=== PATIENT | male | born 1985 | race Caucasian/White ===

== ENCOUNTER → 2016-09-18 | Outpatient (CLI) | payer OTHER ==
--- NOTE | 2016-09-18 12:39 | DIAGNOSTIC IMAGING REPORT ---
CT RIGHT LOWER EXTREMITY WITHOUT CT DOSE: 238.77 mGy.cm CLINICAL HISTORY: Right knee pain TECHNIQUE: Helical images were acquired in the transverse plane. Sagittal and coronal reformatted images were acquired. COMPARISON STUDY: None. FINDINGS: There is no radiographic evidence of a pathologic joint effusion. No soft tissue masses are visualized in this noncontrast study. No fractures are visualized. The cruciate ligaments appear unremarkable as visualized on a CT scan. IMPRESSION: No CT abnormalities identified. Electronically signed by: Sourav Kearney M.D. 09/18/2016 12:38 PM Dictated Date/Time: 09/18/2016 12:32 PM
== END | disposition home or self-care (01) ==
LOC: C.CTS 12:20
PROVIDERS: ATTEND Internal Medicine Pulmonary Disease
DX: M25.561 Pain in right knee (principal)